=== PATIENT | male | born 1985 | race African-American/Black ===

== ENCOUNTER 2018-09-18 13:54 | Emergency (ER) | payer OTHER | END 2018-09-18 14:31 | disposition home or self-care (01) | LOC: JERFT 13:54 ==

== ENCOUNTER 2020-08-17 18:48 | Emergency (ER) | payer OTHER ==
[2020-08-17 18:55] VITALS: TEMP 98.1; BMI 40.6
[2020-08-17] MEDS ORDERED: FAMOTIDINE 20 MG/50 ML IVPB 20 MG/50 ML MG IVPB ONE ×2 (20:21→20:43)
[2020-08-17] MEDS ORDERED: MAG HYDROX/AL HYDROX/SIMETH -MYLANTA- ORAL SUSPENSION PO ONE (20:21)
[2020-08-17 20:35] LABS: EOS % 2.9 % (0-4.5); HEMOGLOBIN 17.3 GM/dL (11.7-16.9); LYMPH % 39.3 % (8-40); MCH 30.2 pg (25.7-33.7); MCHC 33.4 g/dl (32.0-35.9); MEAN CELL VOLUME 90.5 fl (80-96); MEAN PLT VOLUME 8.9 fl (7.5-11.1); MONO % 5.5 % (3.8-10.2); NEUT % 51.3 % (42.8-82.8); PLATELET COUNT 267 K/MM3 (134-434); RBC 5.75 M/mm3 (4.00-5.60); RDW 13.5 % (11.9-15.9); WHITE BLOOD COUNT 10.6 K/mm3 (4.0-10.0)
[2020-08-17] MEDS ORDERED: MAG HYDROX/AL HYDROX/SIMETH 30 ML UNIT-DOSE CUP ONE (20:43)
[2020-08-17 20:58] LABS: CHLORIDE 107 mmol/L (98-107); SODIUM 139 mmol/L (136-145)
[2020-08-17 21:00] LABS: ALBUMIN 4.2 g/dl (3.4-5.0); ANION GAP 7 MMOL/L (8-16); CALCIUM 9.2 mg/dL (8.5-10.1); CO2 25 mmol/L (21-32); LIPASE 347 U/L (73-393)
[2020-08-17 21:01] LABS: BLOOD UREA NITROGEN 12.2 mg/dL (7-18); GLUCOSE,RANDOM 84 mg/dL (74-106)
[2020-08-17 21:03] LABS: SGOT/AST 70 U/L (15-37); SGPT/ALT 96 U/L (13-61)
[2020-08-17 21:05] LABS: BILIRUBIN,TOTAL 0.6 mg/dL (0.2-1)
[2020-08-17 21:06] LABS: ALK PHOS 61 U/L (45-117)
[2020-08-17 23:51] LABS: CHLORIDE 107 mmol/L (98-107); SODIUM 139 mmol/L (136-145)
[2020-08-17 23:53] LABS: CALCIUM 9.1 mg/dL (8.5-10.1)
[2020-08-17 23:54] LABS: ANION GAP 7 MMOL/L (8-16); BLOOD UREA NITROGEN 12.6 mg/dL (7-18); CO2 24 mmol/L (21-32); GLUCOSE,RANDOM 97 mg/dL (74-106)
[2020-08-18 00:46] VITALS: BP 154/94; PULSE 79
== END 2020-08-18 00:46 | disposition home or self-care (01) ==
LOC: JER 18:48
PROC: 3E033GC Introduction of Other Therapeutic Substance into Peripheral Vein, Percutaneous Approach (ICD-10-PCS; principal; 2020-08-17)
DX: R07.89 Other chest pain (principal)
CPT/HCPCS: 36415; 71046-TC-FY; 80048; 80053; 83690; 84484; 85025; 93005; 93010; 99285-25

== ENCOUNTER 2021-10-18 10:27 | Emergency (ER) | payer OTHER ==
[2021-10-18 10:31] VITALS: BMI 38.0
[2021-10-18] MEDS ORDERED: LORazepam 2 MG/ML SDV VIAL IVPUSH ONE (10:49)
[2021-10-18 11:37] LABS: BASO % 0.5 % (0-2.0); EOS % 2.8 % (0-4.5); HEMATOCRIT 50.6 % (35.4-49); HEMOGLOBIN 16.9 GM/dL (11.7-16.9); LYMPH % 30.7 % (8-40); MCH 29.7 pg (25.7-33.7); MCHC 33.4 g/dl (32.0-35.9); MEAN CELL VOLUME 88.9 fl (80-96); MEAN PLT VOLUME 8.3 fl (7.5-11.1); MONO % 9.7 % (3.8-10.2); NEUT % 56.3 % (42.8-82.8); PLATELET COUNT 319 10^3/uL (134-434); RBC 5.69 M/mm3 (4.00-5.60); RDW 13.2 % (11.9-15.9); WHITE BLOOD COUNT 8.1 K/mm3 (4.0-10.0)
[2021-10-18 11:53] LABS: CHLORIDE 102 mmol/L (98-107); SODIUM 137 mmol/L (136-145)
[2021-10-18 11:56] LABS: ALBUMIN 4.6 g/dl (3.4-5.0); ANION GAP 11 MMOL/L (8-16); BLOOD UREA NITROGEN 8.8 mg/dL (7-18); CO2 24 mmol/L (21-32); GLUCOSE,RANDOM 98 mg/dL (74-106)
[2021-10-18 11:59] LABS: CREATININE 1.1 mg/dL (0.55-1.3); SGOT/AST 417 U/L (15-37); SGPT/ALT 136 U/L (13-61)
[2021-10-18 12:02] LABS: ALK PHOS 65 U/L (45-117)
[2021-10-18 12:32] LABS: VENOUS BASE EXCESS -2.9 mmol/L (-2-2); VENOUS O2 SATURATION 68.5 % (70-80); VENOUS PCO2 37.2 mmHg (38-52); VENOUS PH 7.381 (7.310-7.410)
[2021-10-18 16:21] VITALS: BP 144/74; PULSE 84; TEMP 98.3
== END 2021-10-18 16:22 | disposition home or self-care (01) ==
LOC: JER 10:27
PROC: 3E033GC Introduction of Other Therapeutic Substance into Peripheral Vein, Percutaneous Approach (ICD-10-PCS; principal; 2021-10-18)
DX: R07.9 Chest pain, unspecified (principal); F32.A Depression, unspecified
CPT/HCPCS: 36415; 71045-TC-FY; 71275-TC; 74174-TC; 80053; 80307; 82803; 84439; 84443; 84484; 85025; 93005; 93010; 93308; 99285-25; Q9967

== ENCOUNTER 2022-08-30 10:00 | Emergency (ER) | payer OTHER ==
[2022-08-30 10:16] VITALS: TEMP 98.3; BMI 39.5
[2022-08-30] MEDS ORDERED: IBUPROFEN 600 MG TABLET (FP) PO ONE ×2 (12:41→13:07)
[2022-08-30] MEDS ORDERED: LIDOCAINE 5% TOPICAL PATCH TP ONE (12:41)
[2022-08-30] MEDS ORDERED: LIDOCAINE 5% TOPICAL PATCH ONE (13:07)
[2022-08-30 14:38] VITALS: BP 144/84; PULSE 75; RESP 18
[2022-08-30] MEDS ORDERED: LIDOCAINE PATCH REMOVAL MC ONE (22:00)
== END 2022-08-30 14:56 | disposition home or self-care (01) ==
LOC: JERFT 10:00 → JER 10:00
DX: S06.0X0A Concussion without loss of consciousness, initial encounter (principal); M54.2 Cervicalgia; Y04.8XXA Assault by other bodily force, initial encounter; Y93.61 Activity, american tackle football
CPT/HCPCS: 70450-TC; 71101-TC-RT-FY; 73562-TC-RT-FY; 99284-25

== ENCOUNTER 2024-01-24 10:18 | Emergency (ER) | payer OTHER ==
[2024-01-24 11:17] LABS: BASO % 0.4 % (0-2.0); EOS % 2.8 % (0-4.5); HEMOGLOBIN 16.5 GM/dL (11.7-16.9); LYMPH % 18.5 % (8-40); MCHC 33.1 g/dl (32.0-35.9); MEAN CELL VOLUME 90.7 fl (80-96); MEAN PLT VOLUME 8.1 fl (7.5-11.1); MONO % 2.9 % (3.8-10.2); NEUT % 75.4 % (42.8-82.8); PLATELET COUNT 270 10^3/uL (134-434); RBC 5.51 M/mm3 (4.00-5.60); RDW 13.5 % (11.9-15.9); VENOUS BASE EXCESS 0.6 mmol/L (-2-2); VENOUS O2 SATURATION 91.7 % (70-80); VENOUS PCO2 34.2 mmHg (38-52); VENOUS PH 7.458 (7.310-7.410); WHITE BLOOD COUNT 10.9 K/mm3 (4.0-10.0)
[2024-01-24 11:36] LABS: POTASSIUM 4.3 mmol/L (3.5-5.1)
[2024-01-24] MEDS ORDERED: AZITHROMYCIN 500 MG TABLET ONE (11:36)
[2024-01-24 11:37] LABS: ALBUMIN 4.2 g/dl (3.4-5.0)
[2024-01-24 11:38] LABS: BLOOD UREA NITROGEN 10.7 mg/dL (7-18); CALCIUM 9.5 mg/dL (8.5-10.1); MAGNESIUM 2.5 mg/dL (1.8-2.4)
[2024-01-24] MEDS ORDERED: ACETAMINOPHEN 500 MG TABLET (FP) ONE (11:38)
[2024-01-24 11:41] LABS: CREATININE 1.1 mg/dL (0.55-1.3)
[2024-01-24 11:43] LABS: BILIRUBIN,TOTAL 0.5 mg/dL (0.2-1); TOT PROT 7.9 g/dl (6.4-8.2)
[2024-01-24] MEDS: AZITHROMYCIN 500 MG TABLET PO ONE (11:45)
[2024-01-24] MEDS: ACETAMINOPHEN 500 MG TABLET (FP) PO ONE (11:45)
[2024-01-24 11:46] LABS: N-TERMINAL BNP 9.2 pg/ml (5-125)
[2024-01-24 11:53] VITALS: BP 155/95; PULSE 85; RESP 18; TEMP 98.2; BMI 44.6
[2024-01-24 13:11] LABS: HIV INTERPRETATION NEGATIVE (NEGATIVE)
== END 2024-01-24 12:16 | disposition home or self-care (01) ==
LOC: JER 10:18
DX: R06.02 Shortness of breath (principal); J40 Bronchitis, not specified as acute or chronic; R05.9 Cough, unspecified; R53.1 Weakness; R50.9 Fever, unspecified; R07.89 Other chest pain; Z20.822 Contact with and (suspected) exposure to COVID-19
CPT/HCPCS: 0241U-QW; 36415; 71045-TC-FY; 80053; 82803; 83735; 83880; 84484; 85025; 86803; 86850; 86900; 86901; 87389; 93005; 93010; 99285-25